=== PATIENT | male | born 1960 | race Caucasian/White ===

== ENCOUNTER → 2017-01-02 | Day surgery (SDC) | payer BC ==
[~2017-01-02] MED LIST: ACETAMINOPHEN650 M1 PO; ALLOPURINOL300 MG PO; AMLODIPINE BESYL5 MG PO; BACTRIM DS TABL1 TA2 PO; BENTYL10 MG PO; CELEXA10 MG PO; CIPRO PO; COGENTIN1 M1 PO; COLESTID1 GM PO; DELTASONE20 MG PO; DIFLUCAN100 MG PO; FLOMAX0.4 M1 PO; FOLIC ACID1 MG PO; FUROSEMIDE40 MG PO; HALDOL PO; HYDROCODON-ACE1 EAC7 PO; KCL PO; LASIX PO; MAG-OX 400400 MG PO; MAGNESIUM400 MG PO; MULTI-VITAMIN1 EAC1 PO; MULTIPLE VITAMI1 T11 PO; NORVASC2.5 MG PO; NOTE; PANTOPRAZOLE SO40 MG PO; PATIENT'S PHARMACY; PROTONIX PO; PYRIDIUM PO; REMERON PO; REVLIMID15 MG PO; RITUXIMAB PO; SMZ-TMP DS PO; SODIUM BICARBO650 MG PO; THIAMINE HCL100 M2 PO; TUMS500 M1 PO; VALACYCLOVIR1000 MG PO; VIT B-1 PO; XARELTO20 MG PO; ZESTRIL40 MG PO; ZETIA PO; ZOFRAN ODT4 MG PO; ZYDELIG100 MG PO
--- NOTE | ~2017-01-02 | OR ---
Unit #: [id number] #: [id number] Patient: KARI LARRY [id number] [address] [address] [id number] O MR#: [id number] NAME: KARI LARRY. ROOM: Date of Procedure: 01/02/2017 Admission Date: 01/02/2017 Surgeon: Reginaldo Edwards M.D. : 1960 Attending Physician: Reginaldo Edwards M.D. Referring Physician: Reginaldo Edwards M.D. Primary Care Physician: Andrew Etienne M.D. OPERATIVE REPORT PRIMARY CARE PHYSICIAN Andrew Etienne M.D. or Baldomero Raphael M.D. PREOPERATIVE DIAGNOSIS Dysphagia. PROCEDURES PERFORMED 1. Upper gastrointestinal endoscopy and biopsy. 2. Upper gastrointestinal endoscopy and dilation with a TTS balloon. POSTOPERATIVE DIAGNOSES 1. The patient had tight stricture in the distal esophagus; however, the overall appearance is a lot better than the first time. This was dilated using an 18 to 20 mm TTS balloon up to 19 mm. 2. Biopsies obtained from the distal esophagus to look for any evidence of eosinophilic esophagitis as the patient had multiple strictures above the GE junction. 3. Small hiatus hernia. 4. Moderate prepyloric antral gastritis. A biopsy was also obtained from the antrum for CLOtest. RECOMMENDATIONS The patient is advised to stay on pantoprazole 40 mg p.o. daily on a long-term basis. SEDATION USED MAC. DESCRIPTION OF PROCEDURE Following detailed explanation of potential risks and complications of an upper endoscopy, namely perforation, bleeding, and complications related to sedation, the patient was brought to GI lab and laid in the left lateral decubitus position. Lubricated tip of the Olympus video upper endoscope was passed through the bite block into the proximal esophagus under direct vision. The entire esophageal mucosa was examined and the patient was noted to have multiple strictures in the distal esophagus above the Z-line. In addition, a small hiatus hernia was noted. The changes were also somewhat suggestive of eosinophilic esophagitis. The scope was then advanced into the gastric cavity after traversing a small hiatus hernia. Mucosa of the fundus, body, and antrum was examined. Moderate prepyloric antral erythema and erosions noted indicating antral gastritis. The patient was also noted to have mild focal patchy erosive Unit #: [id number] #: [id number] Patient: KARI LARRY duodenitis. Second and third part of the duodenum were normal. Upon withdrawal and retroflexion, incisura, cardia, and greater curve examined and biopsy obtained from the antrum for CLOtest. The scope was withdrawn in the distal esophagus. The step-up dilation of distal esophageal stricture was done using 18 to 20 mm TTS balloon starting with 18 mm ending with 19 mm. Minimal bleeding was noted. The area was thoroughly washed with water and good hemostasis was achieved. In addition, multiple biopsies also obtained from distal esophageal mucosa look for any evidence of eosinophilic esophagitis. The scope was then withdrawn all the way up to pharynx. No additional findings noted. The patient tolerated the procedure without any postprocedure complications. Dictated by... Lucia Hennessy/azeem TD: 01/03/2017 04:36 JOB #: [id number] Baldomero Raphael M.D. OPERATIVE REPORT Page 1 of 1 X Reginaldo Edwards MD X PROCEDURE OPERATIVE NOTE
== END | disposition home or self-care (01) ==
LOC: COPS 13:15
DX: K22.2 Esophageal obstruction (principal); R23.4 Changes in skin texture; K44.9 Diaphragmatic hernia without obstruction or gangrene; K29.70 Gastritis, unspecified, without bleeding; I10 Essential (primary) hypertension; Z90.89 Acquired absence of other organs; Z88.8 Allergy status to other drugs, medicaments and biological substances; Z79.01 Long term (current) use of anticoagulants; Z79.899 Other long term (current) drug therapy; Z86.718 Personal history of other venous thrombosis and embolism; Z85.72 Personal history of non-Hodgkin lymphomas
CPT/HCPCS: 87077; 88305; 88312

== ENCOUNTER 2017-01-08 13:49 | Inpatient (IN) | payer BC ==
--- NOTE | ~2017-01-08 | HP ---
Unit #: [id number] #: [id number] Patient: KARI LARRY [id number] [address] [address] [id number] I MR#: [id number] NAME: KARI LARRY. ROOM: 56432 Age: 56 Sex: M Admission Date: 01/08/2017 : 1960 Attending Physician: Prasanna Hay M.D. Referring Physician: Andrew Etienne M.D. Primary Care Physician: Andrew Etienne M.D. HISTORY AND PHYSICAL CHIEF COMPLAINT Seizures. HISTORY OF PRESENT ILLNESS The patient is a 56-year-old male with history of follicular lymphoma on oral chemotherapy. He was brought to the emergency room from the PCP's office with seizures. The patient has been drinking alcohol for the last 3 to 4 days. The seizure lasted for 5 minutes. The patient is being admitted for the above reasons secondary to the alcohol. The patient stated the patient drinks a pint of alcohol every day, last alcohol was on Saturday. Denies any fever, chills, nausea or vomiting or head trauma. PAST MEDICAL HISTORY 1. History of lymphoma and he is currently on idelalisib. 2. History of hypertension. 3. Hyperlipidemia. PAST SURGICAL HISTORY Bilateral rotator cuff surgeries. HOME MEDICATIONS 1. Norvasc. 2. Revlimid. 3. Protonix. 4. Remeron. 5. Lasix. 6. Valacyclovir. 7. Citalopram. 8. Bactrim. 9. Xarelto. 10. Vitamin B. ALLERGIES No known drug allergies. SOCIAL HISTORY Denies any smoking cigarettes. Positive for alcohol, a pint of alcohol every day. Denies any illicit drug abuse. FAMILY HISTORY Positive for kidney disease requiring dialysis. REVIEW OF SYSTEMS A 14-point review of systems performed and only pertinent positive Unit #: [id number] #: [id number] Patient: KARI LARRY findings as described above, remaining are negative. PHYSICAL EXAMINATION VITAL SIGNS: Temperature 98.6, pulse 112, respiratory rate 18, blood pressure 166/111, saturating 98% at room air. GENERAL: Patient is lying on the bed not in acute distress. HEENT: Atraumatic, normocephalic. Pupils equal, round, and reactive to light and accommodation. Extraocular movements are intact. Dry mucous membrane. NECK: Supple. LUNGS: Decreased air entry at the bases. HEART: Regular rate and rhythm. ABDOMEN: Soft, positive bowel sounds. EXTREMITIES: No cyanosis, no clubbing. NEUROLOGIC: Patient has a . DIAGNOSTIC STUDIES LABORATORY: Glucose 210, BUN 32, creatinine 2.6, sodium 129, potassium 2.5, chloride 83, bicarb 28, calcium 9.4, total protein 7.4, albumin 5.1, AST 97, ALT 46, alkaline phosphatase 61. CK 1683. Lactic acid 4.5. INR 1.1. WBC 4.6, hemoglobin 15.1, hematocrit 42.5, platelets 64. Alcohol level less than 5. UA is not done. IMAGING: Chest x-ray shows portable view of the chest demonstrates no infiltrate or effusion. CT of the head shows no acute abnormalities seen in the brain. If the patient has ongoing neurologic symptoms, or if it would assist in patient management consider further evaluation with MRI. Moderate generalized atrophy greater than anticipated for patient of this age and more pronounced in the posterior fossa. Periventricular deep white matter tract probable sequelae of chronic microvascular ischemia. No fractures. Single tiny air fluid level in the right mastoid air cell, correlate with any signs or symptoms of mild acute mastoiditis. ASSESSMENT AND PLAN 1. Seizure, apparently secondary to alcohol withdrawal. 2. Hyponatremia. 3. Hypokalemia. 4. Mblgh-qf-gwbiabz kidney disease. 5. Lactic acidosis. PLAN 1. Admit patient to inpatient with telemetry. 2. CIWA protocol. 3. Renal consult for acute renal insufficiency and hyponatremia. 4. Replace potassium per protocol. 5. Repeat labs again in the morning. 6. Psychiatric consult. 7. Further recommendations will follow. Dictated by Prasanna Hay M.D. Unit #: [id number] #: [id number] Patient: KARI LARRY TANG/lee TD: 01/08/2017 18:15 JOB #: [id number] HISTORY AND PHYSICAL Page 1 of 1 X X HISTORY AND PHYSICAL
--- NOTE | ~2017-01-08 | CO ---
Unit #: [id number] #: [id number] Patient: KARI LARRY [id number] [facility] [address] [facility]. [place], [place] [address] [id number] I MR#: [id number] NAME: KARI LARRY. ROOM: 329 Age: 56 Sex: M Admission Date: 01/08/2017 : 1960 Attending Physician: Navdeep Whipple M.D. Primary Care Physician: Andrew Etienne M.D. Consultation Date: 01/13/2017 CONSULTATION REPORT REASON FOR CONSULTATION Followup. DISCUSSION Mr. Kari Larry is a 56-year-old male seen on 01/13/2017. Patient interviewed, chart reviewed, obtained information from nursing staff. Patient was seen in room 329, bed 1 on 01/13/2017 at [facility]. Patient was able to give coherent information, still got confused but showed improvement. Able to carry out a conversation. Alert and oriented in place and person. Vital signs: 98.4, 82, 18, 134/78, oxygen saturation 98%. Patient did not show any agitation, redirectable. Dressed in hospital attire, lying comfortably in bed. Complete review of systems is unremarkable. MENTAL STATUS EXAMINATION Vital signs: 98.4, 82, 134/78, oxygen saturation 99%. General appearance: Patient dressed in hospital attire, lying comfortably in bed. Attention span and concentration fair. Speech slow in volume, poor articulation, oriented in self and place. Mood and affect labile. Thought process circumstantial. Thought content guarded but denied any suicidal or homicidal ideation. Denied any psychotic symptoms. Recent and remote memory fair to poor. Language fair. Fund of knowledge fair to slightly impaired. Insight and judgment fair to slightly impaired. DIAGNOSIS PSYCHIATRIC: Delirium, F05, improving. Alcohol use disorder, moderate to severe, F10.20. ASSESSMENT AND PLAN 1. Supportive psychotherapy and psychoeducation provided to patient. 2. Educated about benefits and side effects of medications and course and prognosis of illness. 3. Advised to continue with the current medication combination. If needed, consider further adjustment of medication. Please feel free to call if any questions, . Dictated by... Deuce Nieves M.D. MELISSA/scotty Unit #: [id number] #: [id number] Patient: KARI LARRY TD: 01/13/2017 15:13 JOB #: [id number] CONSULTATION REPORT Page 1 of 1 X Deuce Nieves MD X CONSULTATION REPORT
--- NOTE | ~2017-01-08 | CR72 ---
[facility] A Service of [facility] & [facility] RADIOLOGY TEXT RESULTS PATIENT: KARI LARRY LOCATION: [facility] 329-01 : [birth year] UNIT #: [id number] AGE: [address]: Navdeep Whipple MD SEX: M ORDER DR: [id number] [facility] [address] [facility]. [place], [place] [address] [id number] MR#: [id number] Acc #: [id number] NAME: KARI LARRY. : 1960 SEX: M STUDY DATE/TIME: 01/08/2017 12:40 UNIT: [facility] ROOM: STUDY DESCRIPTION: CR Chest Single View Portable Attending Physician: Calli Borrego M.D. Referring Physician: Andrew Etienne M.D. Ordering Physician: Calli Borrego M.D. Primary Care Physician: Andrew Etienne M.D. MEDICAL IMAGING REPORT This report is preliminary unless electronic signature is present EXAM Portable chest HISTORY Seizure, shortness of air, EtOH abuse. COMPARISON 03/05/2016 FINDINGS Portable view of the chest demonstrates no infiltrates or effusions. Heart, mediastinum, great vessels unremarkable. Bony thorax unremarkable for age. Surgical clips are seen in the left axillary region. Overall no acute findings. Dictated by... Gabriel Nino M.D. THIS IS AN ELECTRONICALLY VERIFIED REPORT Gabriel Nino M.D. at 01/09/2017 7:33 AM Mary Kate TD: 01/08/2017 13:59 JOB #: [id number] MEDICAL IMAGING REPORT Page 1 of 1 COPY
--- NOTE | ~2017-01-08 | CO ---
Unit #: [id number] #: [id number] Patient: KARI LARRY [id number] [facility] [address] [facility]. [place], [place] [address] [id number] I MR#: [id number] NAME: KARI LARRY. ROOM: 329 Age: 56 Sex: M Admission Date: 01/08/2017 : 1960 Attending Physician: Navdeep Whipple M.D. Primary Care Physician: Andrew Etienne M.D. Consultation Date: 01/11/2017 CONSULTATION REPORT REASON FOR CONSULTATION Followup. DISCUSSION Mr. Kari Larry is a 56-year-old white male, seen in room 329 bed 1 on 01/11/2017 at [facility]. The patient dressed in hospital attire. The patient was sleeping, drowsy, agitated, at times moving. The patient still confused, guarded, paranoid, decrease in agitation, but still unable to give any coherent information. According to , the patient was able to recognize him, able to eat some, currently on Librium as well as Haldol, Cogentin, Ativan. The patient's vital signs; temperature 99.6, pulse 74, respirations 18, blood pressure 114/85, oxygen saturation 100%. The patient has a sitter by bedside. REVIEW OF SYSTEMS Complete review of systems is unremarkable, unable to obtain. MENTAL STATUS EXAMINATION Vital signs; please see above. General appearance; the patient dressed casually in hospital attire, somewhat restless, unable to give any coherent information. Attention span and concentration, poor. Speech, unable to assess. Orientation, unable to assess. Mood and affect, labile. Thought process and thought content, unable to assess. Confused and agitation. Recent and remote memory, poor. Language, unable to assess. Fund of knowledge, impaired. Insight and judgment, impaired. DIAGNOSES Psychiatric: 1. Delirium, F05. 2. Alcohol use disorder, severe, F10.20. ASSESSMENT/PLAN Supportive psychotherapy and psychoeducation provided to the patient, but the patient unable to comprehend and answered all the patient's 's questions and explained about current treatment. The patient to continue with current medications at this time and [facility] protocol. The patient is advised to hold medication if the patient too sleepy. The patient's urine colony showed mixed growth of positive marlen. CMP was remarkable for sodium 141, potassium 2.9, glucose 115, calcium 7.6. We will continue to follow. Please feel free to call if any questions telephone #[phone]. Dictated by... Deuce Nieves M.D. Unit #: [id number] #: [id number] Patient: LARONKARI Lukas TORRES/azeem TD: 01/12/2017 03:12 JOB #: [id number] CONSULTATION REPORT Page 1 of 1 X Deuce Nieves MD X CONSULTATION REPORT
--- NOTE | ~2017-01-08 | CO ---
Unit #: [id number] #: [id number] Patient: KARI LARRY [id number] [facility] [address] [place], [place] [address] [id number] I MR#: [id number] NAME: KARI LARRY. ROOM: 329 Age: 56 Sex: M Admission Date: 01/08/2017 : 1960 Attending Physician: Navdeep Whipple M.D. Primary Care Physician: Andrew Etienne M.D. Consultation Date: 01/09/2017 CONSULTATION REPORT REASON FOR CONSULTATION Alcohol abuse, alcohol withdrawal, psychosis, delirium. HISTORY OF PRESENT ILLNESS Ms. Kari Larry is a 56-year-old white male seen in room 329, bed 1 on 01/09/2017 at [facility]. The patient was lying comfortably in bed, dressed in hospital attire. The patient's was at the bedside. The patient was unable to give any coherent information. Seems to be attending to internal stimuli. Picking on things from air. Bizarre behavior. Vital Signs: 98.7, 84, 18, 134/83. Oxygen saturation 99%. The patient's reported that he was admitted earlier, almost a year ago with similar complaints with alcohol detox and had psychotic symptom. The patient was admitted according to the report in March of 2016 with dehydration and hypokalemia and alcohol withdrawal. The patient is currently on CIWA protocol, needing one-to-one monitoring for seizure as well as for agitation. PAST PSYCHIATRIC HISTORY Remarkable for history of alcohol abuse, mood disorder. No history of any outpatient treatment. No history of suicide attempt. MEDICAL HISTORY History of lymphoma. History of hypertension, hyperlipidemia. MEDICATION HISTORY The patient is on Norvasc, Revlimid, Protonix, Remeron, and Lasix valacyclovir, citalopram, Bactrim, Xarelto, vitamin B. ALLERGIES No known drug allergies. FAMILY HISTORY The patient has a good support from his . No history of abuse. History of substance abuse as mentioned above. REVIEW OF SYSTEMS Complete review of systems: Remarkable for confusion and agitation. MENTAL STATUS EXAMINATION Vital Signs: Please see above. General Appearance: The patient dressed in hospital attire, lying comfortably in bed. Seemed somewhat anxious, picking on things, guarded, paranoid, unable to give any information. Attending to internal stimuli. Attention span, concentration: Poor. Unit #: [id number] #: [id number] Patient: KARI LARRY Speech: Unable to answer any question. Orientation: Unable to assess. Mood and affect: Labile. Thought process/Thought content: Guarded, paranoid. Attending to internal stimuli. Recent and remote memory: Poor. Language: Unable to assess. Fund of knowledge poor. Impaired. Insight and judgment: Poor. DIAGNOSIS PSYCHIATRIC: Delirium, F05. Alcohol use disorder, severe, F10.20. SECONDARY: Deferred. MEDICAL: Please refer to H and P. STRESSORS: Psychosocial stressor. ASSESSMENT/PLAN 1. Supportive psychotherapy, psychoeducation provided to the patient and the patient's , but the patient unable to comprehend much. 2. Continue with current treatment protocol, CIWA protocol. Advised to add Librium 50 mg 3 times a day with a plan to gradually taper it off, and add Haldol 5 mg times a day, Cogentin 1 mg 3 times a day. With p.o. route unable to take, I advised IM route. We will continue to follow. Please feel free to call if any question, telephone #[phone]. Dictated by... Lucia Hernandez/robert TD: 01/10/2017 08:57 JOB #: [id number] CONSULTATION REPORT Page 1 of 1 X Deuce Nieves MD X CONSULTATION REPORT
--- NOTE | ~2017-01-08 | EKG ---
PATIENT: KARI LARRY UNIT #: [id number] Ventricular Rate: 93 BPM Atrial Rate: 93 BPM P-R Interval: 164 ms QRS Duration: 106 ms Q-T Interval: 388 ms QTC Calculation(Bezet): 482 ms Calculated R Greene: -38 degrees Calculated T Greene: 49 degrees Diagnosis Line: Normal sinus rhythm Diagnosis Line: Left axis deviation Diagnosis Line: Prolonged QT Diagnosis Line: Abnormal ECG Diagnosis Line: No previous ECGs available Diagnosis Line: Confirmed by CARLOS FIELDS MD ([id number]) on Diagnosis Line: 01/08/2017 4:40:37 PM INTERPRETING MD: DONNIE WHARTON
--- NOTE | ~2017-01-08 | US77 ---
[facility] A Service of [facility] & [facility] RADIOLOGY TEXT RESULTS PATIENT: KARI LARRY LOCATION: [facility] 329-01 : 56 UNIT #: [id number] AGE: [address]: Navdeep Whipple MD SEX: M ORDER DR: [id number] [facility] [address] [facility]. [place], [place] [address] [id number] I MR#: [id number] Acc #: [id number] NAME: KARI LARRY. : 1960 SEX: M STUDY DATE/TIME: 01/09/2017 9:20 UNIT: A PCU ROOM: [facility] STUDY DESCRIPTION: US Kidney Bilateral Complete Attending Physician: Navdeep Whipple M.D. Referring Physician: Andrew Etienne M.D. Ordering Physician: Navdeep Whipple M.D. Primary Care Physician: Andrew Etienne M.D. MEDICAL IMAGING REPORT This report is preliminary unless electronic signature is present EXAM Renal ultrasound, 01/09/2017. HISTORY Renal failure. Renal cyst. TECHNIQUE Real time ultrasonography of the bilateral kidneys performed. COMPARISON CT examination 12/24/2016. FINDINGS Right kidney measures 11.29 cm in greatest length. The left kidney measures 9.85 cm in greatest length. No hydronephrosis or nephrolithiasis. No perinephric fluid collection. There is a left renal cyst measuring approximately 6 mm in diameter and corresponding to finding in left upper renal pole on prior CT examination. No solid-appearing nodule. No perinephric fluid collection. The visualized liver shows no focal abnormality. Visualized spleen unremarkable. The urinary bladder is markedly distended measuring approximately 14.3 cm x 9.7 cm x 9.6 cm. This may be physiologic in nature. Correlate with any clinical signs or symptoms of bladder urinary retention or bladder obstruction. Urinary bladder was normal in volume on prior CT examination December 24. No focal bladder wall abnormality is suggested. IMPRESSION 1. No acute renal abnormality. No hydronephrosis or nephrolithiasis. 2. Subcentimeter cyst upper pole left kidney as on prior CT. 3. No perinephric fluid collections. 4. Distension of the urinary bladder measuring 14.3 cm x 9.7 cm x 9.6 cm. No focal mural abnormality is seen. The bladder distension [facility] A Service of [facility] & [facility] RADIOLOGY TEXT RESULTS PATIENT: KARI LARRY LOCATION: [facility] 329-01 : 56 UNIT #: [id number] AGE: [address]: Navdeep Whipple MD SEX: M ORDER DR: could be physiologic in nature. It could be a reflection of urinary retention or bladder outlet obstruction. Correlate clinically. Bladder was of normal volume on recent CT examination in December. 5. Visualized liver and spleen unremarkable. Dictated by... Mike Reeder M.D. THIS IS AN ELECTRONICALLY VERIFIED REPORT Mike Reeder M.D. at 01/10/2017 10:55 PM JADA/olivier TD: 01/09/2017 15:00 JOB #: [id number] MEDICAL IMAGING REPORT Page 1 of 1 COPY
--- NOTE | ~2017-01-08 | CO ---
Unit #: [id number] #: [id number] Patient: KARI LARRY [id number] [address] [address] [id number] I MR#: [id number] NAME: KARI LARRY. ROOM: 329 Age: 56 Sex: M Admission Date: 01/08/2017 : 1960 Attending Physician: Navdeep Whipple M.D. Primary Care Physician: Andrew Etienne M.D. Consultation Date: 01/14/2017 CONSULTATION REPORT REASON FOR CONSULTATION Followup. DISCUSSION Mr. Kari Larry is a 56-year-old white male, seen in room 329, bed 1 on 01/14/2017. The patient dressed in hospital attire, lying comfortably in bed. The patient was able to answer questions appropriately. Still having some residual confusion, but overall making progress. The patient did not show any agitation. Denied any suicidal or homicidal ideation. Denied any auditory or visual hallucination. Vital signs; temperature 97.9, pulse 66, respiratory rate 18, blood pressure 110/64, oxygen saturation 98%. REVIEW OF SYSTEMS Complete review of systems unremarkable. MENTAL STATUS EXAMINATION Vital signs, please see above. General appearance, the patient dressed in hospital attire, lying comfortably in bed. Attention span and concentration, fair to poor. Speech, slow. Oriented in place and person. Mood and affect; sad, dysphoric, flat. Thought process, circumstantial. Thought content, guarded and paranoid, but denied any thoughts of harming self or others. Recent and remote memory, fair to poor. Language, fair. Fund of knowledge, fair to slightly impaired. Insight and judgment, fair to slightly impaired. DIAGNOSES Psychiatric: Delirium, F05, resolving; alcohol use disorder, moderate to severe, F10.20. ASSESSMENT/PLAN 1. Supportive psychotherapy and psychoeducation provided to patient. 2. Educated about benefits and side effects of medication and course and prognosis of illness. 3. Plan to taper off Librium and haloperidol, as the patient is making progress. If needed, consider further adjustment of medication. Please feel free to call if any questions, telephone #[phone]. Dictated by... Deuce Nieves M.D. MELISSA/azeem Unit #: [id number] #: [id number] Patient: KARI LARRY TD: 01/14/2017 23:20 JOB #: [id number] CONSULTATION REPORT Page 1 of 1 X Deuce Nieves MD CONSULTATION REPORT
--- NOTE | ~2017-01-08 | DS ---
Unit #: [id number] #: [id number] Patient: KARI LARRY [id number] [address] [place], [place] [address] [id number] I MR#: [id number] NAME: KARI LARRY. ROOM: 329 Age: 56 Sex: M Admission Date: 01/08/2017 : 1960 Discharge Date: 01/15/2017 Attending Physician: Navdeep Whipple M.D. Referring Physician: Andrew Etienne M.D. Primary Care Physician: Andrew Etienne M.D. DISCHARGE SUMMARY ADMITTING DIAGNOSES 1. Seizures. 2. Seizures secondary to alcohol withdrawal. 3. History of lymphoma, currently follicular lymphoma, on oral chemotherapy. 4. History of alcoholism. 5. Acute kidney injury. CONSULTANTS 1. Dr. Antonio Chambers. 2. Dr. Nieves. HISTORY OF PRESENTING ILLNESS Patient is a 56-year-old man with a past medical history of follicular lymphoma, currently on chemotherapy, who follows with Dr. [place], who presented to the emergency room with seizures on January 08, 2017. Apparently, he was drinking alcohol heavily, and he developed seizures. HOSPITAL COURSE He was given kept on alcohol withdrawal protocol. Initially, he was also noted to be in acute kidney injury. He was monitored closely. The acute kidney injury was thought to be secondary to volume depletion, and he was started on IV fluids. His electrolytes were monitored and replaced. His magnesium was consistently low possibly due to poor nutritional status secondary to alcoholism. Dr. Nieves evaluated him. He had active withdrawal symptoms, and slowly the symptoms have resolved. He was with a bedside sitter at one point in the hospital course. He is doing clinically better. I spoke with the patient and his , and he wants to go home. The mentioned she will be able to manage him at home. He is more alert at this point with no further withdrawal. Kindly note, he was taking Bactrim and acyclovir, along with oral chemotherapy, and I have requested him to follow with Dr. [place]'s office as an outpatient for further management of his lymphoma. PHYSICAL EXAMINATION ON DAY OF DISCHARGE VITAL SIGNS: Temperature 98.1, pulse rate 63, respirations 16, and blood pressure 107/68. GENERAL: Patient is alert and oriented x3, lying in the bed in no acute distress. HEENT: Normocephalic and atraumatic. No icterus. Pupils are equal, Unit #: [id number] #: [id number] Patient: KARI LARRY round, and reactive to light and accommodation. Extraocular muscles intact. NECK: Supple. No JVD. HEART: S1 and S2, regular rate and rhythm. CHEST: Bilateral equal air entry, clear to auscultation. ABDOMEN: Soft and nontender. EXTREMITIES: No edema. Normal pulses. DISCHARGE MEDICATIONS 1. Flomax 0.4 mg daily. 2. Tylenol p.r.n. 3. Xarelto 20 mg p.o. daily. 4. Celexa 40 mg p.o. daily. 5. Bentyl 10 mg p.o. q.8 hours p.r.n. for stomach cramps. 6. Cogentin 1 mg at bedtime. 7. Haldol 5 mg at bedtime. 8. Valtrex 1 g p.o. daily. 9. Norvasc 5 mg daily. 10. Revlimid 20 mg p.o. daily. 11. Multivitamins 1 capsule p.o. daily. 12. Protonix 40 mg daily. 13. Magnesium oxide 400 mg p.o. 3 times daily. 14. Thiamine 100 mg p.o. daily. 15. Folic acid 1 mg p.o. daily. DISCHARGE INSTRUCTIONS All the discharge instructions were explained in detail to the patient and his . Total time spent in his care 35 minutes. Dictated by... Lucia Walls/rahul TD: 01/15/2017 18:33 JOB #: [id number] CC: Abdulaziz [place] M.D. DISCHARGE SUMMARY Page 1 of 1 X X DISCHARGE SUMMARY
--- NOTE | ~2017-01-08 | CO ---
Unit #: [id number] #: [id number] Patient: KARI LARRY [id number] [address] [place], [place] [address] [id number] I MR#: [id number] NAME: KARI LARRY. ROOM: 329 Age: 56 Sex: M Admission Date: 01/08/2017 : 1960 Attending Physician: Navdeep Whipple M.D. Primary Care Physician: Andrew Etienne M.D. Consultation Date: 01/09/2017 CONSULTATION REPORT REASON FOR CONSULTATION Renal insufficiency, hyponatremia. HISTORY OF PRESENT ILLNESS Thank you very much for asking me to see this patient in consultation. Mr. Kari Larry is a 56-year-old male who we had seen in the past in February of 2016 where he was recently started on chemo for lymphoma. He had acute renal failure at that time. It was felt mostly related to volume and although his creatinine in November of 2015 was 1.0, the lowest it got in February the day of discharge was 1.5. He was not seen in the office after this. He was noted in May of 2016 to have a creatinine of 1.5 as well. He presents here after apparently having a seizure felt to be related to alcohol withdrawal and was noted to have a BUN and creatinine of 32 and 2.6 with a sodium of 129 and potassium of 2.5 last night. He apparently drinks at least a pint of alcohol a day. He currently is alert but confused. He has a sitter at bedside. Apparently sitter says he has been having a lot of hallucinations as well. PAST MEDICAL HISTORY History of lymphoma, history of hyponatremia and acute renal failure in 02/22, history of hypertension, history of hyperlipidemia, history of esophageal stricture, status post dilatation in December of 2016 as well as a history of esophagitis and gastritis at that time. ALLERGIES No known drug allergies. SOCIAL HISTORY Positive alcohol abuse, negative smoking. FAMILY HISTORY He has a father that had renal failure and was on dialysis. MEDICINES His medicines according to the list, and he cannot tell me, are including Bactrim three times a week, Protonix, Ativan, Lasix 40 mg daily, Norvasc 5 mg daily, Xarelto, Celexa, Valtrex. REVIEW OF SYSTEMS Again unable to really assess; he denies any chest pain, shortness of breath, nausea, vomiting, diarrhea, urinary symptoms, swelling currently. PHYSICAL EXAMINATION Unit #: [id number] #: [id number] Patient: KARI LARRY GENERAL: Again he is alert but confused. VITAL SIGNS: T-max 98.9, pulse 79 to 112, blood pressure 126 to 166/70 to 111. HEENT: Normocephalic and atraumatic. Pupils are equal, round and reactive to light. Extraocular muscles are intact. Hearing appears to be normal. Mouth is clear. No erythema. No exudate. NECK: Supple. No adenopathy. CARDIAC: He has a regular rhythm without a rub, no S3 or S4. LUNGS: His lungs are clear bilaterally. No wheezes, rhonchi or rales. ABDOMEN: Bowel sounds positive, nontender, soft. EXTREMITIES: He has no lower extremity swelling. His pulses are intact upper and lower extremities. JOINTS: No joint pain or joint swelling. SKIN: No rashes. NEUROLOGIC: Again he is able to move all extremities. He is alert but confused. GASTROINTESTINAL: Deferred. DIAGNOSTIC STUDIES LABORATORY DATA: Upon admission last night he had a sodium of 129, potassium 2.5, chloride is 82, bicarb is 28, BUN and creatinine of 32 and 2.6, glucose of 210, albumin was 5.1, mildly increased liver function tests, CPK was 1683, lactic acid was 4.5 down to 2.1, bilirubin is 2.5, his hemoglobin 15,100 with a white count of 4600 and platelets 64,000. This morning sodium got up to 132, potassium is still 2.8, chloride is 93, bicarb is 27, BUN and creatinine improving at 31 and 2.3 with a glucose of 103, calcium is 8.0 now and the magnesium is 1.0. No urines were sent IMAGING: Chest x-ray is negative. ASSESSMENT AND PLAN 1. Acute kidney injury: This gentleman has acute renal failure most likely related to volume contraction with certainly super high albumin suggesting that he is volume depleted. I do not have any urines on him. Would like to check a UA, culture and sensitivity, urine sodium, urine eosinophils, check a renal ultrasound to rule out obstruction and other gross abnormalities. Continue IV fluids for now, depending on what all that shows, depending on what further workup and treatment. The patient's creatinine again in May of last year was 1.5 so unsure if he has had some chronic scarring from his previous acute injuries in the past versus other. 2. Hyponatremia: Patient appears to have either euvolemic versus hypovolemic hyponatremia, probably a combination of volume depletion and/or alcohol intake. Will check a TSH, cortisol level, check urine osmolality and continue IV fluids for now. Check a BMP later today. 3. Hypokalemia: Continue potassium replacement. Again it is probably nutritional loss as well as from diuretic as well as hypomagnesemia. Will aggressively replace both today. 4. Alcohol abuse, questionable seizure. 5. Hypertension: Will discontinue his Lasix for now and continue his amlodipine. 6. Esophageal stricture, status post dilatation/esophagitis/gastritis: Certainly he is on Protonix and PPIs have been associated with renal insufficiency but because of this active disease he had just on endoscopy last month and with his renal function improving I am going to continue it for now. 7. Thrombocytopenia: Certainly his platelets are low and again it certainly all could be related to alcohol abuse versus other. I Unit #: [id number] #: [id number] Patient: KARI LARRY doubt if he has a TTP/HUS type picture although I do not have a urine on him and the fact that his renal function is improving. Certainly if things do not continue to head in the right direction will have to entertain that diagnosis but I doubt at this time. Dictated by.Thuy Chambers M.D. MONIQUE/lyndsey TD: 01/09/2017 22:12 JOB #: [id number] CONSULTATION REPORT Page 1 of 1 X Chelsey Chambers MD X CONSULTATION REPORT
--- NOTE | ~2017-01-08 | CO ---
Unit #: [id number] #: [id number] Patient: KARI LARRY [id number] [facility] [address] [facility]. [place], [place] [address] [id number] MR#: [id number] NAME: KARI LARRY. ROOM: 329 Age: 56 Sex: M Admission Date: 01/08/2017 : 1960 Attending Physician: Navdeep Whipple M.D. Primary Care Physician: Andrew Etienne M.D. Consultation Date: 01/10/2017 CONSULTATION REPORT REASON FOR CONSULTATION Followup. DISCUSSION Mr. Kari Larry is a 56-year-old white male, seen in room 329, bed 1 on 01/10/2017 at [facility]. The patient has a sitter, continues to have disorganized behavior, disorganized thought process, confused, guarded, paranoid, unable to give any reliable information, agitation, requiring multiple redirections. The patient's vital signs; temperature 101.02, pulse 86, respiratory rate 20, blood pressure 157/77, oxygen saturation 96%. No side effects from medication. REVIEW OF SYSTEMS Complete review of systems unremarkable except as mentioned above. MENTAL STATUS EXAMINATION Vital signs, please see above. General appearance, the patient dressed in hospital attire, somewhat uncomfortable, constantly moving. Attention span and concentration, poor. Speech, unable to assess. Orientation, unable to assess. Mood and affect, labile. Thought process, unable to assess. Thought content, guarded, paranoid, attending to internal stimuli. Recent and remote memory, poor. Language, unable to assess. Fund of knowledge, unable to assess. Insight and judgment, impaired. DIAGNOSES Psychiatric: Alcohol use disorder, severe, F10.20; delirium, F05. ASSESSMENT/PLAN Recommending at this time to continue with current medication combination of Librium CIWA protocol with Ativan and haloperidol, Cogentin. If needed, consider further adjustment of medication. Continue with inpatient treatment. Please feel free to call if any questions, telephone #[phone]. Dictated by... Deuce Nieves M.D. MELISSA/azeem TD: 01/10/2017 23:58 JOB #: [id number] Unit #: [id number] #: [id number] Patient: KARI LARRY CONSULTATION REPORT Page 1 of 1 X Deuce Nieves MD CONSULTATION REPORT
--- NOTE | ~2017-01-08 | CT71 ---
[facility] A Service of [facility] & [facility] RADIOLOGY TEXT RESULTS PATIENT: KARI LARRY LOCATION: A 329-01 : 56 UNIT #: [id number] AGE: [address]: Navdeep Whipple MD SEX: M ORDER DR: [id number] [facility] [address] [facility] [place] [facility]. [place], [place] [address] [id number] MR#: [id number] #: [id number] NAME: KARI LARRY : 1960 SEX: M STUDY DATE/TIME: 01/08/2017 14:17 UNIT: [facility] ROOM: STUDY DESCRIPTION: CT Head Wo Contrast Attending Physician: Calli Borrego M.D. Referring Physician: Andrew Etienne M.D. Ordering Physician: Calli Borrego M.D. Primary Care Physician: Andrew Etienne M.D. MEDICAL IMAGING REPORT This report is preliminary unless electronic signature is present EXAM CT head, 01/08/2017. HISTORY Seizure. Prior history of lymphoma. Seizure witnessed today. EtOH detox 3-[address] head performed skull base through vertex without intravenous contrast. This CT exam was performed with one or more of the following radiation dose reduction techniques: automatic exposure control, adjustment of mA and/or kV according to patient size, and iterative reconstruction. COMPARISON STUDIES No prior CTs of head for comparison. FINDINGS No acute-appearing abnormality in the brainstem. The cerebellum and cerebral hemispheres show preservation of sanchez matter-white matter differentiation with no evidence of acute cortical ischemia and no evidence of acute intracranial hemorrhage. Periventricular and deep white matter tract hypodensities probably reflecting sequelae of chronic microvascular ischemia. The ventricles, cisterns, and sulci show moderate generalized enlargement consistent with moderate generalized atrophy more pronounced than anticipated for a patient of this age, more pronounced in the posterior fossa. Correlate with risk factors. Midline structures are nondisplaced. No acute-appearing basal ganglia abnormality. No intra or extraaxial mass effect or abnormal intracranial fluid collection. The visualized paranasal sinuses and mastoid air cells show a small air-fluid level in a single right mastoid air cells suggesting minimal acute mastoiditis. Mild mucosal thickening ethmoid air cells. No acute fracture. [facility]. [facility] A Service of [facility] & [facility] RADIOLOGY TEXT RESULTS PATIENT: KARI LARRY LOCATION: C3A 329-01 : 56 UNIT #: [id number] AGE: [address]: Navdeep Whipple MD SEX: M ORDER DR: IMPRESSION 1. No acute abnormality is seen in the brain. If the patient has ongoing neurologic symptoms or if it would assist in patient management, consider further evaluation with MRI, specifically seizure protocol MRI. 2. Moderate generalized atrophy, greater than anticipated for patient this age and more pronounced in the posterior fossa. Correlate with risk factors. 3. Periventricular and deep white matter tract, probable sequelae of chronic microvascular ischemia. 4. No fracture. 5. Single tiny air-fluid level in a right mastoid air cell. Correlate with any clinical signs or symptoms of mild acute mastoiditis. Dictated by... Mike Reeder M.D. THIS IS AN ELECTRONICALLY VERIFIED REPORT Mike Reeder M.D. at 01/09/2017 6:26 PM JADA/olivier TD: 01/08/2017 15:12 JOB #: [id number] MEDICAL IMAGING REPORT Page 1 of 1 COPY
[2017-01-08 12:43] LABS: BASOPHIL# 0.1 X10e3 (0-0.3); BASOPHIL% 1.3 % (0-2.5); EOSINOPHIL# 0.1 X10e3 (0-0.7); EOSINOPHIL% 2.1 % (0.0-7.0); HEMATOCRIT 42.5 % (38.0-50.0); HEMOGLOBIN 15.1 gm/dL (13.0-16.0); LYMPHOCYTE% 21.9 % (17.0-45.0); MEAN CELL VOLUME 108.7 FL (83-96); MEAN CORPUSCULAR HEMOGLOBIN 38.5 PG (28-34); MEAN CORPUSCULAR HGB CONC 35.4 g/dL (30-36); MEAN PLATELET VOLUME 9.5 FL (6.5-11.5); MONOCYTE# 0.6 X10e3 (0-1.0); MONOCYTE% 13.4 % (3.0-12.0); NEUTROPHIL# 2.8 X10e3 (1.5-7.1); NEUTROPHIL% 61.3 % (40-75); RED BLOOD COUNT 3.91 X10e (3.90-5.60); RED CELL DISTRIBUTION WIDTH 14.2 % (11.0-15.5); WHITE BLOOD COUNT 4.6 X10e3 (4.0-10.5)
[2017-01-08 12:51] LABS: INR 1.1; PARTIAL THROMBOPLASTIN TIME 28.5 SECONDS (23.5-31.3); PROTHROMBIN TIME (PATIENT) 11.7 SECONDS (9.6-11.5)
[2017-01-08 13:02] LABS: DIFF IND YES; PLATELET COUNT 64 X10e3 (140-420)
[2017-01-08 13:04] LABS: ANISOCYTOSIS SL; PLATELET ESTIMATE DECREASED (NORMAL)
[2017-01-08 13:25] LABS: ALBUMIN SERUM 5.1 g/dL (3.5-5.0); ALKALINE PHOSPHATASE 61 U/L (32-92); ALT (SGPT) 46 U/L (10-40); AST (SGOT) 97 U/L (10-42); BILIRUBIN, DIRECT 0.5 mg/dL (0.0-0.2); BILIRUBIN,TOTAL 2.5 mg/dL (0.2-2.0); BLOOD UREA NITROGEN 32 mg/dL (9-23); CALCIUM SERUM 9.4 mg/dL (8.4-10.2); CARBON DIOXIDE 28 mmol/L (22-31); CHLORIDE 82 mmol/L (100-111); CPK (CREATINE PHOSPHOKINASE) 1683 IU/L (36-174); CREATININE SERUM 2.6 mg/dL (0.6-1.4); GLUCOSE FASTING 210 mg/dL (70-110); PROTEIN TOTAL SERUM 7.4 g/dL (6.0-8.3); SODIUM 129 mmol/L (135-145)
[2017-01-08 13:32] LABS: ALCOHOL BLOOD <5 mg/dL (0); POTASSIUM 2.5 mmol/L (3.5-5.1)
[~2017-01-08 13:49] MED LIST changes: -ACETAMINOPHEN650 M1 PO; -BENTYL10 MG PO; -COGENTIN1 M1 PO; -FLOMAX0.4 M1 PO; -FOLIC ACID1 MG PO; -HALDOL PO; -KCL PO; -MAG-OX 400400 MG PO; -MULTI-VITAMIN1 EAC1 PO; -NORVASC2.5 MG PO; -NOTE; -PATIENT'S PHARMACY; -THIAMINE HCL100 M2 PO
[2017-01-09 05:19] LABS: HEMATOCRIT 32.8 % (38.0-50.0); MEAN CELL VOLUME 109.4 FL (83-96); MEAN CORPUSCULAR HEMOGLOBIN 38.9 PG (28-34); MEAN CORPUSCULAR HGB CONC 35.6 g/dL (30-36); MEAN PLATELET VOLUME 9.6 FL (6.5-11.5); RED CELL DISTRIBUTION WIDTH 13.9 % (11.0-15.5); WHITE BLOOD COUNT 2.8 X10e3 (4.0-10.5)
[2017-01-09 06:10] LABS: HEMOGLOBIN 11.7 gm/dL (13.0-16.0)
[2017-01-09 06:42] LABS: BUN/CREATININE RATIO 13.47; CREATININE SERUM 2.3 mg/dL (0.6-1.4); GLOM FILT RATE Estimated 30.2 mL/min (>60)
[2017-01-09 06:47] LABS: POTASSIUM 2.8 mmol/L (3.5-5.1)
[2017-01-09 12:43] LABS: URINE APPEARANCE CLEAR; URINE BILIRUBIN NEG (NEG); URINE BLOOD 1+ (NEG); URINE COLOR YELLOW; URINE GLUCOSE NEG (NEG); URINE KETONE NEG (NEG); URINE LEUKOCYTE ESTERASE NEG (NEG); URINE NITRATE NEG (NEG); URINE PROTEIN TRACE (NEG); URINE SPECIFIC GRAVITY 1.016 (1.003-1.035)
[2017-01-09 12:45] LABS: URBCS1 AUWI 0-2 /[HPF] (0-2); URINE BACTERIA AUWI NEG (NEGATIVE); URINE SQUAMOUS EPITHELIAL CELL NONE SEEN /[HPF]; UWBCS1 AUWI 0-2 (0-5)
[2017-01-09 12:58] LABS: SODIUM URINE RANDOM 22 mmol/L
[2017-01-09 13:12] LABS: OSMOLALITY,URINE 460 mOsmo/kg (250-900)
[2017-01-09 13:29] LABS: AMPHETAMINE NEG (NEG); BARBITURATES NEG (NEG); BENZODIAZEPINES POS (NEG); COCAINE NEG (NEG); MARIJUANA POS (NEG); OPIATES NEG (NEG); TRICYCLIC ANTIDEPRESSANTS NEG (NEG); U METHADONE NEG (NEG)
[2017-01-09 17:02] LABS: BUN/CREATININE RATIO 12.35; CALCIUM SERUM 8.1 mg/dL (8.4-10.2); CREATININE SERUM 1.7 mg/dL (0.6-1.4); GLOM FILT RATE Estimated 43.5 mL/min (>60); MAGNESIUM 1.8 mg/dL (1.6-3.0); PHOSPHOROUS 2.8 mg/dL (2.5-4.6); POTASSIUM 3.1 mmol/L (3.5-5.1)
[2017-01-10 06:35] LABS: HEMATOCRIT 30.3 % (38.0-50.0); HEMOGLOBIN 10.7 gm/dL (13.0-16.0); MEAN CELL VOLUME 109.8 FL (83-96); MEAN CORPUSCULAR HEMOGLOBIN 38.7 PG (28-34); MEAN CORPUSCULAR HGB CONC 35.2 g/dL (30-36); MEAN PLATELET VOLUME 9.4 FL (6.5-11.5); RED BLOOD COUNT 2.76 X10e (3.90-5.60); RED CELL DISTRIBUTION WIDTH 13.9 % (11.0-15.5); WHITE BLOOD COUNT 2.6 X10e3 (4.0-10.5)
[2017-01-10 07:43] LABS: ALBUMIN SERUM 3.9 g/dL (3.5-5.0); BILIRUBIN,TOTAL 1.3 mg/dL (0.2-2.0); CALCIUM SERUM 7.8 mg/dL (8.4-10.2); CREATININE SERUM 1.5 mg/dL (0.6-1.4); GLOM FILT RATE Estimated 50.6 mL/min (>60); MAGNESIUM 1.6 mg/dL (1.6-3.0); PHOSPHOROUS 2.7 mg/dL (2.5-4.6)
[2017-01-10 07:53] LABS: POTASSIUM 2.9 mmol/L (3.5-5.1)
[2017-01-10 20:38] LABS: MAGNESIUM 1.4 mg/dL (1.6-3.0); POTASSIUM 3.4 mmol/L (3.5-5.1)
[2017-01-11 07:03] LABS: ALBUMIN SERUM 3.8 g/dL (3.5-5.0); BILIRUBIN,TOTAL 1.1 mg/dL (0.2-2.0); BUN/CREATININE RATIO 6.66; CALCIUM SERUM 7.6 mg/dL (8.4-10.2); CREATININE SERUM 1.2 mg/dL (0.6-1.4); GLOM FILT RATE Estimated 66.3 mL/min (>60); MAGNESIUM 1.6 mg/dL (1.6-3.0); PHOSPHOROUS 2.7 mg/dL (2.5-4.6); PROTEIN TOTAL SERUM 6.2 g/dL (6.0-8.3)
[2017-01-11 07:08] LABS: POTASSIUM 2.9 mmol/L (3.5-5.1)
[2017-01-11 16:39] LABS: POTASSIUM,URINE RANDOM 54 mmol/L; SODIUM URINE RANDOM 90 mmol/L
[2017-01-12 07:43] LABS: HEMATOCRIT 27.8 % (38.0-50.0); HEMOGLOBIN 9.6 gm/dL (13.0-16.0); MEAN CELL VOLUME 113.5 FL (83-96); MEAN CORPUSCULAR HGB CONC 34.4 g/dL (30-36); MEAN PLATELET VOLUME 8.4 FL (6.5-11.5); RED BLOOD COUNT 2.45 X10e (3.90-5.60); RED CELL DISTRIBUTION WIDTH 13.9 % (11.0-15.5); WHITE BLOOD COUNT 3.4 X10e3 (4.0-10.5)
[2017-01-12 08:15] LABS: BUN/CREATININE RATIO 9.16; CALCIUM SERUM 7.6 mg/dL (8.4-10.2); CREATININE SERUM 1.2 mg/dL (0.6-1.4); GLOM FILT RATE Estimated 66.3 mL/min (>60); PHOSPHOROUS 2.3 mg/dL (2.5-4.6); POTASSIUM 3.6 mmol/L (3.5-5.1)
[2017-01-13 05:55] LABS: EOSINOPHIL# 0.2 X10e3 (0-0.7); HEMATOCRIT 27.4 % (38.0-50.0); HEMOGLOBIN 9.5 gm/dL (13.0-16.0); LYMPHOCYTE# 0.4 X10e3 (1.0-3.5); LYMPHOCYTE% 14.5 % (17.0-45.0); MEAN CELL VOLUME 113.1 FL (83-96); MEAN CORPUSCULAR HGB CONC 34.5 g/dL (30-36); MEAN PLATELET VOLUME 7.9 FL (6.5-11.5); MONOCYTE# 0.6 X10e3 (0-1.0); MONOCYTE% 22.3 % (3.0-12.0); NEUTROPHIL# 1.5 X10e3 (1.5-7.1); NEUTROPHIL% 56.2 % (40-75); PLATELET COUNT 91 X10e3 (140-420); RED BLOOD COUNT 2.42 X10e (3.90-5.60); RED CELL DISTRIBUTION WIDTH 13.9 % (11.0-15.5); WHITE BLOOD COUNT 2.6 X10e3 (4.0-10.5)
[2017-01-13 06:01] LABS: DIFF IND NO
[2017-01-13 06:37] LABS: ALBUMIN SERUM 2.8 g/dL (3.5-5.0); BILIRUBIN,TOTAL 0.6 mg/dL (0.2-2.0); BUN/CREATININE RATIO 10.9; CALCIUM SERUM 7.4 mg/dL (8.4-10.2); CREATININE SERUM 1.1 mg/dL (0.6-1.4); GLOM FILT RATE Estimated 73.6 mL/min (>60); MAGNESIUM 1.3 mg/dL (1.6-3.0); PHOSPHOROUS 3.2 mg/dL (2.5-4.6); POTASSIUM 4.1 mmol/L (3.5-5.1); PROTEIN TOTAL SERUM 5.3 g/dL (6.0-8.3)
[2017-01-14 05:46] LABS: BASOPHIL% 1.7 % (0-2.5); EOSINOPHIL# 0.1 X10e3 (0-0.7); EOSINOPHIL% 6.3 % (0.0-7.0); HEMATOCRIT 25.3 % (38.0-50.0); HEMOGLOBIN 8.7 gm/dL (13.0-16.0); LYMPHOCYTE# 0.3 X10e3 (1.0-3.5); LYMPHOCYTE% 18.9 % (17.0-45.0); MEAN CELL VOLUME 112.3 FL (83-96); MEAN CORPUSCULAR HEMOGLOBIN 38.5 PG (28-34); MEAN CORPUSCULAR HGB CONC 34.2 g/dL (30-36); MONOCYTE# 0.5 X10e3 (0-1.0); MONOCYTE% 25.3 % (3.0-12.0); NEUTROPHIL# 0.9 X10e3 (1.5-7.1); NEUTROPHIL% 47.8 % (40-75); PLATELET COUNT 101 X10e3 (140-420); RED BLOOD COUNT 2.25 X10e (3.90-5.60); RED CELL DISTRIBUTION WIDTH 13.7 % (11.0-15.5); WHITE BLOOD COUNT 1.8 X10e3 (4.0-10.5)
[2017-01-14 05:49] LABS: DIFF IND YES
[2017-01-14 06:07] LABS: PLATELET ESTIMATE DECREASED (NORMAL)
[2017-01-14 06:25] LABS: ALBUMIN SERUM 2.8 g/dL (3.5-5.0); BILIRUBIN,TOTAL 0.5 mg/dL (0.2-2.0); BUN/CREATININE RATIO 11.81; CALCIUM SERUM 7.8 mg/dL (8.4-10.2); CREATININE SERUM 1.1 mg/dL (0.6-1.4); GLOM FILT RATE Estimated 73.6 mL/min (>60); MAGNESIUM 1.4 mg/dL (1.6-3.0); PHOSPHOROUS 3.3 mg/dL (2.5-4.6); POTASSIUM 4.1 mmol/L (3.5-5.1); PROTEIN TOTAL SERUM 5.2 g/dL (6.0-8.3)
[2017-01-15 02:07] LABS: HA AB IGM (HEPPAN) Nonreactive (()); HB CORE AB IGM (HEPPAN) Nonreactive (Nonreactive); HB S AG (HEPPAN) Nonreactive (Nonreactive); HEP C AB (HEPPAN) Nonreactive (Nonreactive)
[2017-01-15 05:33] LABS: HEMATOCRIT 25.7 % (38.0-50.0); HEMOGLOBIN 8.8 gm/dL (13.0-16.0); MEAN CELL VOLUME 112.6 FL (83-96); MEAN CORPUSCULAR HEMOGLOBIN 38.6 PG (28-34); MEAN CORPUSCULAR HGB CONC 34.3 g/dL (30-36); MEAN PLATELET VOLUME 8.1 FL (6.5-11.5); RED BLOOD COUNT 2.28 X10e (3.90-5.60); WHITE BLOOD COUNT 1.7 X10e3 (4.0-10.5)
[2017-01-15 06:04] LABS: ALBUMIN SERUM 2.6 g/dL (3.5-5.0); BILIRUBIN,TOTAL 0.4 mg/dL (0.2-2.0); CREATININE SERUM 0.9 mg/dL (0.6-1.4); GLOM FILT RATE Estimated 93.8 mL/min (>60); MAGNESIUM 1.3 mg/dL (1.6-3.0); POTASSIUM 4.3 mmol/L (3.5-5.1); PROTEIN TOTAL SERUM 4.6 g/dL (6.0-8.3)
[2017-01-15] MEDS ORDERED: FLOMAX0.4 M1 PO (15:51)
[2017-01-15] MEDS ORDERED: MAG-OX 400400 MG PO (15:52)
[2017-01-15] MEDS ORDERED: ACETAMINOPHEN650 M1 PO (15:52)
[2017-01-15] MEDS ORDERED: BENTYL10 MG PO (15:53)
[2017-01-15] MEDS ORDERED: COGENTIN1 M1 PO (15:53)
[2017-01-15] MEDS ORDERED: MULTI-VITAMIN1 EAC1 PO (15:54)
[2017-01-15] MEDS ORDERED: HALDOL PO (15:54)
[2017-01-15] MEDS ORDERED: THIAMINE HCL100 M2 PO (15:55)
[2017-01-15] MEDS ORDERED: FOLIC ACID1 MG PO (15:55)
[2017-01-21 11:55] LABS: CALCIUM (PTHINTACT) 7.5 mg/dL (8.6-10.3)
[2017-06-04] MEDS ORDERED: NOTE (15:05)
[2017-06-04] MEDS ORDERED: NORVASC2.5 MG PO (15:05)
[2017-06-04] MEDS ORDERED: PATIENT'S PHARMACY (15:05)
[2017-06-04] MEDS ORDERED: KCL PO (15:05)
== END 2017-01-15 18:06 | disposition home health service (06) | DRG 897 ==
LOC: CED 13:49 → CEDOF 16:55 → C3A PCU 18:19
PROVIDERS: Emergency Medicine; Internal Medicine; Internal Medicine Nephrology; Surgery Vascular Surgery
DX: F10.239 Alcohol dependence with withdrawal, unspecified (principal); D61.818 Other pancytopenia; C82.90 Follicular lymphoma, unspecified, unspecified site; E87.2 Acidosis; N17.9 Acute kidney failure, unspecified; K22.2 Esophageal obstruction; N18.3 Chronic kidney disease, stage 3 (moderate); E87.1 Hypo-osmolality and hyponatremia; G40.89 Other seizures; Z79.01 Long term (current) use of anticoagulants; E87.6 Hypokalemia; I12.9 Hypertensive chronic kidney disease with stage 1 through stage 4 chronic kidney disease, or unspecified chronic kidney disease
CPT/HCPCS: 70450; 71010; 76770; 80048; 80053; 80074; 80076; 80307; 81003; 82310; 82436; 82533; 82550; 82652; 82947; 83605; 83735; 83935; 83970; 84100; 84132; 84133; 84300; 84443; 85025; 85027; 85610; 85730; 87086; 89190; 93005; 94760; 96361; 96365; 96366; 96375; 96376; 97110; 97116; 97162; 97166; 97530; 97535; 99285; G0480; J2060; J2270; J3411; J3475; J7042